=== PATIENT | male | born 1980 | race Caucasian/White ===

== ENCOUNTER → 2022-01-31 08:25 | Outpatient (BNVA) | payer MEDICAID, SELFPAY | PROVIDERS: Family Provider Nurse Practitioner Family; PCP Nurse Practitioner Family; Visit Provider Family Medicine | DX: E11.9 Type 2 diabetes mellitus without complications (principal); G47.30 Sleep apnea, unspecified; E83.119 Hemochromatosis, unspecified; R53.83 Other fatigue; T78.40XA Allergy, unspecified, initial encounter; Z23 Encounter for immunization | CPT/HCPCS: 80053; 80061; 82607; 82728; 83036; 83540; 84443; 85025 ==

== ENCOUNTER → 2022-03-13 10:01 | Day surgery (SDC) | payer MEDICAID, SELFPAY ==
[2022-03-13 10:09] VITALS: BP 126/75; PULSE 83; RESP 18; TEMP 36.8; O2SAT 95
[2022-03-13 10:23] LABS: Hematocrit 50.5 % (42.0-52.0); Hemoglobin 17.9 g/dL (11.7-16.6)
[2022-03-13 10:45] VITALS: BP 114/64; PULSE 87; RESP 18; O2SAT 95
--- NOTE | 2022-03-13 10:45 | PC.NURSE ---
Pt to GI infusions for therapeutic phlebotomy. Hg today 17.9 and Hct 50.5. Phelbotomy performed as ordered. 18 guage started to left AC with 500 g removed without difficulty. Pt tolerated well. BP stable following procedure with pt stating he feels fine.
== END ==
LOC: GILAB 10:02
PROVIDERS: PCP Family Medicine; Visit Provider Family Medicine
DX: E83.119 Hemochromatosis, unspecified (principal)
CPT/HCPCS: 85014; 85018; 99195

== ENCOUNTER → 2022-03-27 09:04 | Day surgery (SDC) | payer OTHER, MEDICAID, SELFPAY ==
[2022-03-27 09:22] LABS: Hematocrit 49.7 % (42.0-52.0); Hemoglobin 17.4 g/dL (11.7-16.6)
[2022-03-27 09:25] VITALS: BP 127/81; PULSE 78; RESP 18; TEMP 36.6; O2SAT 97
--- NOTE | 2022-03-27 10:00 | PC.NURSE ---
Pt to GI infusions for therapeutic phlebotomy. Hg 17.4 and Hct 49 today. Phlebotomy drawn as ordered. Pt tolerated well.
== END ==
PROVIDERS: PCP Family Medicine; Visit Provider Family Medicine
DX: E83.119 Hemochromatosis, unspecified (principal)
CPT/HCPCS: 36415; 85014; 85018; 99195

== ENCOUNTER → 2022-04-11 07:56 | Day surgery (SDC) | payer OTHER, MEDICAID, SELFPAY ==
[2022-04-11 08:16] LABS: Hematocrit 47.9 % (42.0-52.0); Hemoglobin 16.3 g/dL (11.7-16.6)
[2022-04-11 08:17] VITALS: BP 140/80; PULSE 88; RESP 18; TEMP 36.3; O2SAT 97
[2022-04-11 08:38] VITALS: BP 124/66; PULSE 82; RESP 18; O2SAT 95
--- NOTE | 2022-04-11 08:49 | PC.NURSE ---
Pt to GI infusions for therapeutic phlebotomy. Hg 16 and Hct 47. Phlebotomy drawn as ordered. Pt tolerated well.
== END ==
LOC: GILAB 07:58
PROVIDERS: PCP Family Medicine; Visit Provider Family Medicine
DX: E83.119 Hemochromatosis, unspecified (principal)
CPT/HCPCS: 85014; 85018; 99195

== ENCOUNTER → 2022-04-23 08:10 | Day surgery (SDC) | payer OTHER, MEDICAID, SELFPAY ==
[2022-04-23 08:34] VITALS: BP 148/72; PULSE 80; RESP 18; TEMP 36.9; O2SAT 95
[2022-04-23 08:44] LABS: Hematocrit 48.9 % (42.0-52.0); Hemoglobin 16.5 g/dL (11.7-16.6)
--- NOTE | 2022-04-23 09:07 | PC.NURSE ---
Hg today 16.5 and Hct 48.9. Phlebotomy drawn as ordered. Pt tolerated well. No reaction noted.
[2022-04-23 09:18] LABS: Ferritin 498 ng/mL (30-400)
== END ==
LOC: GILAB 08:13
PROVIDERS: PCP Family Medicine; Visit Provider Family Medicine
DX: E83.119 Hemochromatosis, unspecified (principal)
CPT/HCPCS: 36415; 82728; 85014; 85018; 99195

== ENCOUNTER → 2022-05-08 08:01 | Day surgery (SDC) | payer OTHER, MEDICAID, SELFPAY ==
[2022-05-08 08:21] LABS: Hematocrit 48.9 % (42.0-52.0); Hemoglobin 16.7 g/dL (11.7-16.6)
[2022-05-08 08:25] VITALS: BP 139/78; PULSE 89; RESP 18; TEMP 36.5; O2SAT 97
--- NOTE | 2022-05-08 08:55 | PC.NURSE ---
Pt to GI infusions for therapeutic phlebotomy. Hg 16.7 and Hct 48.9 today. Phlebotomy drawn as ordered. Pt tolerated well.
== END ==
PROVIDERS: PCP Family Medicine; Visit Provider Family Medicine
DX: E83.119 Hemochromatosis, unspecified (principal)
CPT/HCPCS: 36415; 85014; 85018; 99195

== ENCOUNTER → 2022-05-22 07:43 | Day surgery (SDC) | payer OTHER, MEDICAID, SELFPAY ==
[2022-05-22 08:02] VITALS: BP 144/85; PULSE 82; RESP 18; TEMP 36; O2SAT 96
[2022-05-22 08:12] LABS: Hematocrit 48.2 % (42.0-52.0); Hemoglobin 16.7 g/dL (11.7-16.6)
[2022-05-22 08:51] VITALS: BP 127/81; PULSE 78; RESP 18; O2SAT 95
--- NOTE | 2022-05-22 08:51 | PC.NURSE ---
Pt to GI infusions for therapeutic phlebotomy. Hg 16.7 and Hct 48.2 today. Phlebotomy drawn as ordered. Pt tolerated well.
== END ==
PROVIDERS: PCP Family Medicine; Visit Provider Family Medicine
DX: E83.119 Hemochromatosis, unspecified (principal)
CPT/HCPCS: 36415; 85014; 85018; 99195

== ENCOUNTER → 2022-06-05 07:58 | Day surgery (SDC) | payer OTHER, MEDICAID, SELFPAY ==
[2022-06-05 08:16] VITALS: BP 133/84; PULSE 77; RESP 18; TEMP 36.5; O2SAT 97
[2022-06-05 08:18] LABS: Hematocrit 48.3 % (42.0-52.0); Hemoglobin 16.7 g/dL (11.7-16.6)
--- NOTE | 2022-06-05 09:03 | SUR.OPER ---
Pt to GI infusions for therapeutic phlebotomy. Hg today 16.7 and Hct 48.3. Phlebotomy drawn as ordered. Pt tolerated well.
== END ==
LOC: GILAB 08:00
PROVIDERS: PCP Family Medicine; Visit Provider Family Medicine
DX: E83.119 Hemochromatosis, unspecified (principal)
CPT/HCPCS: 36415; 85014; 85018; 99195

== ENCOUNTER → 2022-06-06 08:33 | Outpatient (BNVA) | payer OTHER, MEDICAID, SELFPAY | PROVIDERS: PCP Family Medicine; Visit Provider Family Medicine | DX: E11.9 Type 2 diabetes mellitus without complications (principal); E83.119 Hemochromatosis, unspecified; G47.30 Sleep apnea, unspecified; I10 Essential (primary) hypertension; T78.40XA Allergy, unspecified, initial encounter; F43.9 Reaction to severe stress, unspecified | CPT/HCPCS: 80053; 80061; 82728; 83036 ==

== ENCOUNTER → 2022-06-19 12:11 | Day surgery (SDC) | payer OTHER, MEDICAID, SELFPAY ==
[2022-06-19 12:29] LABS: Hematocrit 49.6 % (42.0-52.0); Hemoglobin 17.2 g/dL (11.7-16.6)
[2022-06-19 12:30] VITALS: BP 159/82; PULSE 78; RESP 18; TEMP 36.5; O2SAT 97
--- NOTE | 2022-06-19 13:11 | PC.NURSE ---
Pt to GI infusions for therapeutic phlebotomy. Hg today 17.2 and Hct 49.6. Phlebotomy drawn as ordered. Today is 4th phlebotomy. Ferritin drawn as ordered.
[2022-06-19 13:26] LABS: Ferritin 189 ng/mL (30-400)
== END ==
LOC: GILAB 12:12
PROVIDERS: PCP Family Medicine; Visit Provider Family Medicine
DX: E83.119 Hemochromatosis, unspecified (principal)
CPT/HCPCS: 36415; 82728; 85014; 85018; 99195

== ENCOUNTER → 2022-07-03 11:09 | Day surgery (SDC) | payer OTHER, MEDICAID, SELFPAY ==
[2022-07-03 11:26] LABS: Hematocrit 48.8 % (42.0-52.0); Hemoglobin 16.8 g/dL (11.7-16.6)
[2022-07-03 11:27] VITALS: BP 128/69; PULSE 83; RESP 18; TEMP 36.3; O2SAT 96
== END ==
LOC: GILAB 11:10
PROVIDERS: PCP Family Medicine; Visit Provider Family Medicine
DX: E83.119 Hemochromatosis, unspecified (principal); Z79.899 Other long term (current) drug therapy
CPT/HCPCS: 36415; 85014; 85018; 99195

== ENCOUNTER 2022-07-09 14:38 | Emergency (ER) | payer OTHER, MEDICAID, SELFPAY ==
[2022-07-09 14:40] VITALS: BP 132/81; PULSE 85; RESP 18; TEMP 36.7; O2SAT 96
[2022-07-09 15:04] VITALS: BP 124/69; PULSE 84; O2SAT 94
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
[2022-07-09] MEDS: HYDROcodone-acetaminophen 7.5-325 mg Tablet 1 TAB PO (16:27)
[2022-07-09 16:36] VITALS: BP 119/70; PULSE 78; O2SAT 92
== END 2022-07-09 16:37 | disposition home or self-care (01) ==
PROVIDERS: Emergency Provider Emergency Medicine; PCP Family Medicine
DX: S16.1XXA Strain of muscle, fascia and tendon at neck level, initial encounter (principal); R91.1 Solitary pulmonary nodule; Z79.84 Long term (current) use of oral hypoglycemic drugs; Z79.85 Long-term (current) use of injectable non-insulin antidiabetic drugs; F17.210 Nicotine dependence, cigarettes, uncomplicated; V43.52XA Car driver injured in collision with other type car in traffic accident, initial encounter
CPT/HCPCS: 72125; 99284

== ENCOUNTER → 2022-07-17 12:20 | Day surgery (SDC) | payer OTHER, MEDICAID, SELFPAY ==
[2022-07-17 12:42] VITALS: BP 110/76; PULSE 80; RESP 18; TEMP 37; O2SAT 96; BMI 45.1
[2022-07-17 13:15] LABS: Hematocrit 49.8 % (42.0-52.0); Hemoglobin 17.1 g/dL (11.7-16.6)
== END ==
LOC: GILAB 12:21
PROVIDERS: PCP Family Medicine; Visit Provider Family Medicine
DX: E83.119 Hemochromatosis, unspecified (principal); Z79.899 Other long term (current) drug therapy
CPT/HCPCS: 36415; 85014; 85018; 99195

== ENCOUNTER → 2022-07-31 07:53 | Day surgery (SDC) | payer OTHER, MEDICAID, SELFPAY ==
[2022-07-31 08:08] VITALS: BP 141/78; PULSE 79; RESP 18; TEMP 36.3; O2SAT 97
[2022-07-31 08:12] LABS: Hematocrit 49.3 % (42.0-52.0); Hemoglobin 16.8 g/dL (11.7-16.6)
[2022-07-31 08:32] LABS: Ferritin 77 ng/mL (30-400)
--- NOTE | 2022-07-31 08:34 | PC.NURSE ---
Pt to GI infusions for phlebotomy. Hg 16.8 and Hct 49.3 today. Ferritin level drawn as well. Phlebotomy performed as ordered. Pt scheduled to see Dr. Suarez 08/15/22. Will reevaluate need to continue phlebotomy at that time.
== END ==
LOC: GILAB 07:54
PROVIDERS: PCP Family Medicine; Visit Provider Family Medicine
DX: E83.119 Hemochromatosis, unspecified (principal); Z79.899 Other long term (current) drug therapy
CPT/HCPCS: 36415; 82728; 85014; 85018; 99195

== ENCOUNTER 2022-08-25 12:02 | Outpatient (CLI) | payer OTHER, MEDICAID, SELFPAY ==
--- NOTE | 2022-08-25 12:14 | XR_ITS ---
WS: [id number] RIGHT HIP HISTORY: M25.559 - Pain in unspecified hip COMPARISON: None available. Right hip: No acute fracture or dislocation. Mild narrowing of the hip joint. No destructive bone les ions. Visualized SI joint is normal. XR/XR hip RT 2-3V wo/w pel* [id number] IMPRESSION: 1. No hip fracture. 2. Mild hip joint narrowing.
== END 2022-08-25 12:03 | disposition home or self-care (01) ==
LOC: RAD 12:08
PROVIDERS: PCP Family Medicine; Visit Provider Family Medicine
DX: M25.551 Pain in right hip (principal); R91.1 Solitary pulmonary nodule
CPT/HCPCS: 73502

== ENCOUNTER 2022-09-02 07:13 | Outpatient (CLI) | payer MEDICAID, SELFPAY ==
--- NOTE | 2022-09-02 07:24 | CT_ITS ---
WS: [id number] CT chest w con* [id number] HISTORY: R91.1 - Solitary pulmonary nodule TECHNIQUE: Axial imaging performed through the thorax. Coronal and sagittal reformats are submitted. All CT scans at [facility] use at least one of these dose optimization techniques: automated exposure control; mA and/or kV adjustment per patient size (includes targeted exams where dose is mat ched to clinical indication); or iterative reconstruction. CONTRAST: Omnipaque 350; 100 mL IV. DLP: 742.86 mGy.cm COMPARISON: Cervical spine CT 07/09/2022 Lungs and central airway: Normally aerated lungs. There are several bilateral and predominantly upper lobe nodules which are less than a centimeter. The largest nodules measure 5 mm in the LEFT apex. So me of these nodules are pleural-based. There is no mass or consolidation. Pleura: Normal. No pleural effusion. Heart and pericardium: Normal size heart with no pericardial effusion. Mediastinum and yovani: No mediastinum or hilar adenopathy. Vessels: Normal size aortic and pulmonary artery. No coronary artery calcifications. Chest wall and lower neck: No soft tissue masses. Upper abdomen: Marked hepatic steatosis. The entire liver is not included but does appear large. No a drenal mass. Visualized pancreas is negative. Osseous structures: No destructive process. CT/CT chest w con* [id number] IMPRESSION: 1. Several bilateral subcentimeter pulmonary nodules are noncalcified. These n odules will require serial imaging to document stability. Recommend follow-up c hest CT in 6 months. 2. No adenopathy. 3. Marked hepatic steatosis with enlargement. 4. Negative adrenal glands.
[2022-09-02] MEDS: iohexol 350 mg/mL 500 mL Btl (per mL) IV (07:41)
== END 2022-09-02 07:14 | disposition home or self-care (01) ==
PROVIDERS: PCP Family Medicine; Visit Provider Family Medicine
DX: R91.8 Other nonspecific abnormal finding of lung field (principal); K76.0 Fatty (change of) liver, not elsewhere classified; R16.0 Hepatomegaly, not elsewhere classified
CPT/HCPCS: 71260; Q9967

== ENCOUNTER → 2022-09-09 10:23 | Outpatient (BNVA) | payer OTHER, MEDICAID, SELFPAY | PROVIDERS: PCP Family Medicine; Visit Provider Family Medicine | DX: E11.9 Type 2 diabetes mellitus without complications (principal); E83.119 Hemochromatosis, unspecified | CPT/HCPCS: 80053; 82728; 83036; 83540; 85025 ==

== ENCOUNTER → 2022-12-09 08:30 | Outpatient (BNVA) | payer MEDICAID, SELFPAY | PROVIDERS: PCP Family Medicine; Visit Provider Family Medicine | DX: E11.9 Type 2 diabetes mellitus without complications (principal); E83.119 Hemochromatosis, unspecified | CPT/HCPCS: 80053; 82728; 83036 ==

== ENCOUNTER → 2023-01-28 09:54 | Outpatient (BNVA) | payer MEDICAID, SELFPAY | PROVIDERS: PCP Family Medicine; Visit Provider Nurse Practitioner | DX: J02.9 Acute pharyngitis, unspecified (principal) | CPT/HCPCS: 87880 ==

== ENCOUNTER 2023-02-03 10:52 | Outpatient (CLI) | payer MEDICAID, SELFPAY ==
--- NOTE | 2023-02-03 11:00 | CTR_ITS ---
PROCEDURE INFORMATION: Exam: CT Chest With Contrast; Diagnostic Exam date and time: 02/03/2023 11:10 AM Age: 42 years old Clinical indication: Abnormal findings; Abnormal radiologic exam of lung or chest; Additional info: Follow up pulmonary nodules, six months. TECHNIQUE: Imaging protocol: Diagnostic computed tomography of the chest with contrast. Radiation optimization: All CT scans at this facility use at least one of these dose optimization techniques: automated exposure control; mA and/or kV adjustment per patient size (includes targeted exams where dose is matched to clinical indication); or iterative reconstruction. Contrast material: OMNI 350; Contrast volume: 95 ml; Contrast route: INTRAVENOUS (IV); REPORTING DATA: Count of CT and Cardiac NM exams in prior 12 months: This patient has received 2 known CTs and 0 known cardiac nuclear medicine studies in the 12 months prior to the current study. COMPARISON: CT chest w con* [id number] 09/02/2022 7:37 AM RADIATION DOSE METRICS: Total DLP (mGy-cm): 807.38 FINDINGS: Lungs: Unremarkable. No consolidation. No masses. Pleural spaces: Unremarkable. No pneumothorax. No pleural effusion. Heart: Unremarkable. No cardiomegaly. No pericardial effusion. Lymph nodes: No mass or adenopathy. Vasculature: Unremarkable. No aortic aneurysm. Liver: Hepatic steatosis. Bones/joints: Unremarkable. No acute fracture. Soft tissues: Unremarkable. Other findings: The small faint bilateral nodular densities have all resolved and were evidently inflammatory in nature. No suspicious nodule is currently present. CT/CT chest w con* [id number] IMPRESSION: The findings are normal.
[2023-02-03] MEDS: iohexol 350 mg/mL 500 mL Btl (per mL) IV (11:13)
== END 2023-02-03 10:53 | disposition home or self-care (01) ==
LOC: RAD 10:53
PROVIDERS: PCP Family Medicine; Visit Provider Family Medicine
DX: R91.8 Other nonspecific abnormal finding of lung field (principal)
CPT/HCPCS: 71260; Q9967